=== PATIENT | female | born 1975 | race Caucasian/White ===

== ENCOUNTER 2020-06-26 11:10 | Emergency (ER) | payer OTHER ==
[2020-06-26 11:27] VITALS: BMI 20.1
[2020-06-26 13:12] LABS: HEMATOCRIT 22.9 % (32.4-45.2); HEMOGLOBIN 7.1 GM/dL (10.7-15.3); MCH 20.1 pg (25.7-33.7); MCHC 30.8 g/dl (32.0-36.0); MEAN CELL VOLUME 65.2 fl (80-96); MEAN PLT VOLUME 9.7 fl (7.5-11.1); PLATELET COUNT 506 K/MM3 (134-434); RBC 3.52 M/mm3 (3.60-5.2); RDW 28.5 % (11.6-15.6); WHITE BLOOD COUNT 7.3 K/mm3 (4.0-10.0)
[2020-06-26 13:30] LABS: POTASSIUM 4.1 mmol/L (3.5-5.1)
[2020-06-26 13:33] LABS: CALCIUM 9.1 mg/dL (8.5-10.1)
[2020-06-26 13:37] LABS: CREATININE 0.5 mg/dL (0.55-1.3)
[2020-06-26 14:21] LABS: ANISOCYTOSIS 3+; MACROCYTOSIS 2+; PLATELET ESTIMATE INCREASED
[2020-06-26 18:23] VITALS: BP 113/71; PULSE 82; TEMP 98.5
== END 2020-06-26 21:47 | disposition home or self-care (01) ==
LOC: JER 11:10
DX: D25.9 Leiomyoma of uterus, unspecified (principal)
CPT/HCPCS: 36415; 36430; 80048; 84703; 85025; 86850; 86900; 86901; 86922; 99284-25; P9058